=== PATIENT | female | born 1960 | race Caucasian/White ===

== ENCOUNTER 2020-04-28 03:24 | Inpatient (IN) | payer MEDICARE, OTHER ==
[2020-04-28 03:37] VITALS: BMI 27.0
[2020-04-28] MEDS ORDERED: traZODone HCl 50 MG TAB PO SCH ×2 (05:30→21:00)
[2020-04-28] MEDS: Enoxaparin Sodium 80 MG/0.8 ML SYRINGE SC SCH ×3 (06:30→18:23)
[2020-04-28] MEDS: Nitroglycerin 2% Ointment 1 INCH/1 GM Packet TOP SCH ×3 (06:33→23:50)
[2020-04-28] MEDS: Furosemide 40 MG/4 ML VIAL SLOW IVP SCH ×3 (06:33→14:45)
[2020-04-28 07:36] LABS: Amphetamine Not Detected (NotDetected); Barbiturates Screen Not Detected (NotDetected); Benzodiazepine Screen Not Detected (NotDetected); Cocaine Metabolite Screen Not Detected (NotDetected); Methadone Not Detected (NotDetected); Methamphetamine Not Detected (NotDetected); Opiate Screen Not Detected (NotDetected); Oxycodone Screen Not Detected (NotDetected); Phencyclidine (PCP) Not Detected (NotDetected); THC/Cannabinoid Screen Not Detected (NotDetected); Tricyclic Screen Not Detected (NotDetected)
[2020-04-28] MEDS: Amiodarone 200 MG TAB PO SCH (08:43)
[2020-04-28] MEDS: Bupropion 100 MG SR TAB PO SCH (08:43)
[2020-04-28] MEDS: Aspirin 81 mg Enteric Coated Tablet PO SCH (08:43)
[2020-04-28] MEDS: Clopidogrel Bisulfate 75 MG TAB PO SCH (08:44)
[2020-04-28] MEDS: Gabapentin 300 MG CAP PO SCH ×3 (08:44→20:28)
[2020-04-28] MEDS: Folic Acid 1 MG TAB PO SCH (08:44)
[2020-04-28] MEDS: Carvedilol 6.25 MG TAB PO SCH ×2 (08:44→20:29)
[2020-04-28] MEDS: lamoTRIgine 100 MG TAB PO SCH (08:50)
[2020-04-28] MEDS ORDERED: BIOTIN 1 MG PO SCH (09:00)
[2020-04-28] MEDS ORDERED: Enoxaparin Sodium 40 MG/0.4 ML SYRINGE SC SCH (09:00)
[2020-04-28] MEDS ORDERED: FLU VACC QS2020-21(6MOS UP)/PF 60 MCG/0.5 ML SYRINGE IM ONE (09:00)
[2020-04-28 09:13] LABS: Anion Gap 13 mmol/L (10-20); BUN (Urea Nitrogen) 20 mg/dL (9.8-20.1); Calc. Creatinine Clearance 73 mL/min (70-130); Calcium 8.7 mg/dL (7.8-10.44); Carbon Dioxide 24 mmol/L (22-29); Chloride 104 mmol/L (98-107); Glucose 191 mg/dL (70-105); Magnesium 1.9 mg/dL (1.6-2.6); Potassium 3.8 mmol/L (3.5-5.1); Sodium 137 mmol/L (136-145)
[2020-04-28] MEDS: Lisinopril 5 MG TAB PO SCH (09:14)
[2020-04-28] MEDS: Spironolactone 25 MG TAB PO SCH (09:15)
[2020-04-28 09:18] LABS: #Basophils 0.1 10x3/uL (0.0-0.2); #Eosinphils 0.1 10x3/uL (0.0-0.5); #Monocytes 0.4 10x3/uL (0.0-1.1); #Neutrophils 4.2 10x3/uL (1.5-8.4); %Eosinophils 2.3 % (0.0-6.0); %Lymphocytes 20.8 % (18.0-47.0); %Monocytes 6.7 % (0.0-10.0); %Neutrophils 68.9 % (40.0-75.0); Hemoglobin 9.4 g/dL (12.0-15.5); Mean Corpuscular HGB CONC 31.8 g/dL (32.0-36.0); Mean Corpuscular Volume 97.7 fl (81.6-98.3); Platelet Count 169 10x3/uL (150-450); RBC Distribution Width 15.4 % (11.5-14.5); Red Blood Cell (RBC) Count 3.03 10x6/uL (3.90-5.03); White Blood Cell (WBC) Count 6.1 10x3/uL (3.5-10.5)
[2020-04-28 09:20] LABS: Troponin I 0.026 ng/mL (< 0.028)
[2020-04-28] MEDS ORDERED: Dextrose 5% in Water 1,000 ML IV PRN (11:51)
[2020-04-28] MEDS ORDERED: HumaLOG 300 UNITS/3 ML VIAL SC PRN (11:51)
[2020-04-28] MEDS ORDERED: Dextrose 50% Abboject 50 ML SYRINGE SLOW IVP PRN (11:51)
[2020-04-28] MEDS: HumaLOG 300 UNITS/3 ML VIAL SC PRN ×2 (12:06→18:23)
[2020-04-28] MEDS ORDERED: Lorazepam 2 MG/ML VIAL SLOW IVP PRN (17:55)
[2020-04-28] MEDS ORDERED: Rosuvastatin 20 MG TAB PO SCH (21:00)
[2020-04-28] MEDS ORDERED: Lantus 1000 UNITS/10 ML VIAL SC SCH (21:00)
[2020-04-29] MEDS: Furosemide 40 MG/4 ML VIAL SLOW IVP SCH (05:11)
[2020-04-29] MEDS: Enoxaparin Sodium 80 MG/0.8 ML SYRINGE SC SCH (05:39)
[2020-04-29] MEDS: Nitroglycerin 2% Ointment 1 INCH/1 GM Packet TOP SCH (06:58)
[2020-04-29] MEDS ORDERED: Ezetimibe 10 MG TAB PO SCH (09:00)
[2020-04-29 09:13] LABS: Anion Gap 13 mmol/L (10-20); BUN (Urea Nitrogen) 17 mg/dL (9.8-20.1); Calc. Creatinine Clearance 74 mL/min (70-130); Carbon Dioxide 28 mmol/L (22-29); Chloride 104 mmol/L (98-107); Glucose 90 mg/dL (70-105); Potassium 3.7 mmol/L (3.5-5.1); Sodium 141 mmol/L (136-145)
[2020-04-29] MEDS: Amiodarone 200 MG TAB PO SCH (09:24)
[2020-04-29] MEDS: Carvedilol 6.25 MG TAB PO SCH (09:25)
[2020-04-29] MEDS: Lisinopril 5 MG TAB PO SCH (09:25)
[2020-04-29] MEDS: Clopidogrel Bisulfate 75 MG TAB PO SCH (09:26)
[2020-04-29] MEDS: Aspirin 81 mg Enteric Coated Tablet PO SCH (09:26)
[2020-04-29] MEDS: Folic Acid 1 MG TAB PO SCH (09:27)
[2020-04-29] MEDS: Furosemide 20 MG TAB PO SCH ×2 (09:27→14:20)
[2020-04-29] MEDS: Bupropion 100 MG SR TAB PO SCH (09:29)
[2020-04-29] MEDS: Gabapentin 300 MG CAP PO SCH (09:30)
[2020-04-29] MEDS: Spironolactone 25 MG TAB PO SCH (09:31)
[2020-04-29] MEDS: lamoTRIgine 100 MG TAB PO SCH (09:35)
[2020-04-29 12:06] VITALS: BP 107/59; TEMP 97.7
== END 2020-04-29 14:49 | disposition home or self-care (01) | DRG 291 ==
LOC: CSHTELE 03:24 → OBSVTOIN 17:57
PROVIDERS: ADMIT Family Medicine; ATTEND Internal Medicine
DX: I13.0 Hypertensive heart and chronic kidney disease with heart failure and stage 1 through stage 4 chronic kidney disease, or unspecified chronic kidney disease (principal); I50.23 Acute on chronic systolic (congestive) heart failure; N18.31 Chronic kidney disease, stage 3a; E11.22 Type 2 diabetes mellitus with diabetic chronic kidney disease; I25.10 Atherosclerotic heart disease of native coronary artery without angina pectoris; E78.5 Hyperlipidemia, unspecified; F31.9 Bipolar disorder, unspecified; E11.40 Type 2 diabetes mellitus with diabetic neuropathy, unspecified; F17.210 Nicotine dependence, cigarettes, uncomplicated; R77.8 Other specified abnormalities of plasma proteins; I25.2 Old myocardial infarction; E11.51 Type 2 diabetes mellitus with diabetic peripheral angiopathy without gangrene; Z95.810 Presence of automatic (implantable) cardiac defibrillator; Z90.49 Acquired absence of other specified parts of digestive tract; Z90.89 Acquired absence of other organs; Z95.5 Presence of coronary angioplasty implant and graft; Z95.1 Presence of aortocoronary bypass graft; Z79.01 Long term (current) use of anticoagulants; Z79.4 Long term (current) use of insulin; Z79.82 Long term (current) use of aspirin; Z79.891 Long term (current) use of opiate analgesic; Z79.899 Other long term (current) drug therapy; Z88.5 Allergy status to narcotic agent; Z88.2 Allergy status to sulfonamides
CPT/HCPCS: 36416; 80048; 80306; 83735; 83880; 84443; 93005; 93010; 93306; 96372; 96374; G0378; J1650; J1815; J1940; J2060